=== PATIENT | male | born 2000 | race Caucasian/White ===

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

== ENCOUNTER → 2019-09-01 | Outpatient (CLI) | payer OTHER ==
[~2019-09-01] MED LIST: NOVOLOG 100U100 U/M1 SQ; TRESIBA FL100 UNIT/1 SQ
== END ==
LOC: ZCOL.LAB 17:14
DX: R19.7 Diarrhea, unspecified (principal); Z20.828 Contact with and (suspected) exposure to other viral communicable diseases